=== PATIENT | female | born 1975 | race Caucasian/White ===

== ENCOUNTER 2021-01-22 02:40 | Inpatient (IN) ==
[2021-01-22] MEDS ORDERED: Naloxone 0.4 MG/ML INJ IVP PRN ×2 (05:51→15:31)
[2021-01-22] MEDS ORDERED: Ondansetron 4 MG/2 ML VIAL IVP PRN ×3 (05:51→15:31)
[2021-01-22] MEDS ORDERED: 0.9 % Sodium Chloride 1,000 ML IVC ONE (05:56)
[2021-01-22] MEDS ORDERED: Acetaminophen 325 MG TABLET PO PRN (06:38)
[2021-01-22] MEDS ORDERED: Ketorolac 15 MG/ML VIAL IVP PRN ×2 (06:38→15:31)
[2021-01-22 07:23] LABS: INR 1.3; Prothrombin Time 14.7 Seconds (9.4-12.1)
[2021-01-22 07:25] LABS: Activated Partial Thrombo Time 27.8 Seconds (26.0-36.0)
[2021-01-22 07:37] LABS: Hematocrit 33.4 % (35.3-44.9); Hemoglobin 11.5 g/dL (11.5-15.4); Mean Corpuscular HGB Conc 34.4 g/dL (31.6-35.5); Mean Corpuscular Hemoglobin 31.3 pg (28.0-33.3); Nucleated Red Blood Cells 0.7 /100 WBC (0); Platelet Count 145 K/mcL (140-400); Red Blood Count 3.67 M/mcL (3.82-4.97); Red Cell Distribution Width 12.5 % (11.5-14.5); White Blood Count 11.6 K/mcL (4.3-11.1)
[2021-01-22 07:54] LABS: Alanine Aminotransferase 29 Units/L (7-52); Albumin 3.7 g/dL (3.5-5.7); Albumin/Globulin Ratio 1.6 (1.1-2.2); Alkaline Phosphatase 48 Units/L (34-104); Aspartate Amino Transferase 19 Units/L (13-39); BUN/Creatinine Ratio 16 (6-26); Bilirubin,Total 0.7 mg/dL (0.3-1.0); Blood Urea Nitrogen 18 mg/dL (6-20); Calcium 8.2 mg/dL (8.6-10.3); Carbon Dioxide 18 mEq/L (23-29); Chloride 113 mEq/L (98-107); Globulin 2.3 g/dL (2.4-3.5); Glucose 116 mg/dL (70-105); Magnesium 1.3 mg/dL (1.6-2.6); Osmolality,Calculated 291 (280-300); Phosphorous 1.3 mg/dL (2.7-4.5); Potassium 2.9 mEq/L (3.5-5.1); Sodium 139 mEq/L (136-145); eGFR For African Americans > 60 (> 60); eGFR For Non-African Americans 52 (> 60)
[2021-01-22 08:44] LABS: Lymphocytes # 1.2 K/mcL (0.6-4.6); Monocytes # 0.9 K/mcL (0.0-1.3); Neutrophils # 9.5 K/mcL (1.6-8.9)
[2021-01-22 08:45] LABS: Platelet Estimate Normal (Normal)
[2021-01-22] MEDS ORDERED: Potassium Chloride 40 MEQ, Lidocaine 1% 2 ML in 0.9 % Sodium Chloride 500 ML IVPB ONE (08:45)
[2021-01-22 08:46] LABS: Reactive Lymphocytes Present (Not Present); Toxic Granulation Present (Not Present)
[2021-01-22] MEDS ORDERED: *HR* HYDROmorphone (PF) 1 MG/ML SYRINGE IVP PRN (08:48)
[2021-01-22] MEDS ORDERED: *HR* Meperidine 25 MG/ML SYRINGE IVP PRN (08:48)
[2021-01-22] MEDS ORDERED: *HR* OxyCODONE Immed Rel 5 MG TABLET PO PRN (08:48)
[2021-01-22] MEDS ORDERED: cefTRIAXone 1,000 MG in Water for inj. (sterile) 10 ML IVP SCH (09:00)
[2021-01-22] MEDS ORDERED: *HR* Midazolam HCl 2 MG/2 ML VIAL ONE ×2 (09:35→10:32)
[2021-01-22] MEDS ORDERED: *HR* Propofol 200 MG/20 ML VIAL IVP ONE ×2 (09:35→10:04)
[2021-01-22] MEDS ORDERED: *HR* FentaNYL (PF) 100 MCG/2 ML VIAL ONE ×2 (09:35→10:04)
[2021-01-22] MEDS ORDERED: Lidocaine -MPF 2% 2 ML VIAL ONE ×2 (09:35→10:04)
[2021-01-22] MEDS ORDERED: Isovue-300 50ML VIAL ONE (09:58)
[2021-01-22] MEDS ORDERED: Acetaminophen IV 1,000 MG/100 ML BAG IVPB ONE (10:05)
[2021-01-22] MEDS ORDERED: Dexamethasone 4 MG/ML VIAL ONE (10:17)
[2021-01-22] MEDS ORDERED: Ondansetron 4 MG/2 ML VIAL ONE (10:17)
[2021-01-22] MEDS ORDERED: *HR* PHENYLEPHRINE 1,000 MCG/10 ML SYRINGE IVP ONE (10:26)
[2021-01-22] MEDS ORDERED: Ketorolac 30 MG/ML VIAL ONE (10:33)
[2021-01-22] MEDS ORDERED: Ringers Solution, Lactated 1,000 ML ONE ×2 (10:47→11:20)
[2021-01-22] MEDS ORDERED: Potassium Phosphate 44 MEQ in 0.9 % Sodium Chloride 250 ML IVPB ONE (12:30)
[2021-01-22] MEDS ORDERED: 0.9 % Sodium Chloride 500 ML IVC ONE (13:55)
[2021-01-22] MEDS ORDERED: 0.9 % Sodium Chloride 1,000 ML IVC SCH (14:00)
[2021-01-22] MEDS: 0.9 % Sodium Chloride 1,000 ML IVC SCH (14:34)
[2021-01-22 15:02] LABS: Bilirubin,Urine Negative (Negative); Blood,Urine Large (Negative); Clarity,Urine Turbid (Clear); Color,Urine Yellow (Yellow); Glucose,Urine (UA) Normal (Normal); Ketones,Urine Negative (Negative); Leukocyte Esterase,Urine Large (Negative); Nitrite,Urine Negative (Negative); Protein,Urine 100 mg/dL (Neg-Trace); RBC,Urine TNTC per hpf (0-3); Specific Gravity,Urine 1.023 (1.010-1.025); Squamous Epithelial Cell,Urine Few per hpf (None-Few); Urobilinogen,Urine Normal (Normal); WBC,Urine TNTC per hpf (0-3)
[2021-01-22] MEDS ORDERED: *HR* Belladonna Alkaloids/Opium 30 MG RECTAL SUPPOSITORY RC PRN (15:31)
[2021-01-23] MEDS: Acetaminophen 325 MG TABLET PO PRN ×3 (02:57→16:37)
[2021-01-23] MEDS: 0.9 % Sodium Chloride 1,000 ML IVC SCH (02:58)
[2021-01-23 04:56] LABS: Mean Corpuscular HGB Conc 34.1 g/dL (31.6-35.5); Red Cell Distribution Width 13.3 % (11.5-14.5)
[2021-01-23 04:58] LABS: Hematocrit 27.3 % (35.3-44.9); Hemoglobin 9.3 g/dL (11.5-15.4); Immature Platelets 1.6 % (1.1-6.1); Mean Corpuscular Hemoglobin 31.5 pg (28.0-33.3); Mean Corpuscular Volume 92.5 fL (83.0-100.0); Monocytes # 0.7 K/mcL (0.0-1.3); Nucleated Red Blood Cells 0.1 /100 WBC (0); Platelet Count 103 K/mcL (140-400); Red Blood Count 2.95 M/mcL (3.82-4.97); White Blood Count 17.7 K/mcL (4.3-11.1)
[2021-01-23 05:17] LABS: BUN/Creatinine Ratio 24 (6-26); Blood Urea Nitrogen 20 mg/dL (6-20); Calcium 6.4 mg/dL (8.6-10.3); Carbon Dioxide 17 mEq/L (23-29); Chloride 118 mEq/L (98-107); Glucose 96 mg/dL (70-105); Magnesium 1.1 mg/dL (1.6-2.6); Osmolality,Calculated 294 (280-300); Phosphorous 1.7 mg/dL (2.7-4.5); Potassium 3.4 mEq/L (3.5-5.1); Sodium 141 mEq/L (136-145); eGFR For African Americans > 60 (> 60); eGFR For Non-African Americans > 60 (> 60)
[2021-01-23 05:24] LABS: Lymphocytes # 1.8 K/mcL (0.6-4.6); Neutrophils # 15.2 K/mcL (1.6-8.9); Platelet Estimate Decreased (Normal); Reactive Lymphocytes Present (Not Present)
[2021-01-23 08:40] LABS: VBG Ionized Calcium 1.12 mmol/L (1.15-1.35)
[2021-01-23] MEDS: Ringers Solution, Lactated 1,000 ML IVC SCH ×2 (09:32→22:51)
[2021-01-23] MEDS: cefTRIAXone 1,000 MG in Water for inj. (sterile) 10 ML IVP SCH (09:33)
[2021-01-23] MEDS ORDERED: Azithromycin 500 MG in 0.9 % Sodium Chloride 250 ML IVPB ONE (16:50)
[2021-01-24 01:02] LABS: Hematocrit 31.2 % (35.3-44.9); Hemoglobin 10.5 g/dL (11.5-15.4); Mean Corpuscular HGB Conc 33.7 g/dL (31.6-35.5); Mean Corpuscular Hemoglobin 30.6 pg (28.0-33.3); Mean Platelet Volume 10.3 fL (9.4-12.4); Nucleated Red Blood Cells 0.2 /100 WBC (0); Platelet Count 120 K/mcL (140-400); Red Blood Count 3.43 M/mcL (3.82-4.97); Red Cell Distribution Width 13.4 % (11.5-14.5); White Blood Count 15.3 K/mcL (4.3-11.1)
[2021-01-24 01:16] LABS: Anisocytosis 1+ (Not Present); Lymphocytes # 1.2 K/mcL (0.6-4.6); Monocytes # 0.9 K/mcL (0.0-1.3); Neutrophils # 13.2 K/mcL (1.6-8.9)
[2021-01-24 01:17] LABS: Platelet Estimate Slight Decrease (Normal)
[2021-01-24 01:21] LABS: BUN/Creatinine Ratio 15 (6-26); Blood Urea Nitrogen 12 mg/dL (6-20); Calcium 8.1 mg/dL (8.6-10.3); Chloride 115 mEq/L (98-107); Glucose 95 mg/dL (70-105); Magnesium 2.2 mg/dL (1.6-2.6); Osmolality,Calculated 288 (280-300); Phosphorous 1.2 mg/dL (2.7-4.5); Potassium 3.7 mEq/L (3.5-5.1); Sodium 139 mEq/L (136-145); eGFR For African Americans > 60 (> 60); eGFR For Non-African Americans > 60 (> 60)
[2021-01-24] MEDS: Acetaminophen 325 MG TABLET PO PRN ×2 (01:29→20:09)
[2021-01-24 02:09] LABS: Carbon Dioxide 19 mEq/L (23-29)
[2021-01-24] MEDS: cefTRIAXone 1,000 MG in Water for inj. (sterile) 10 ML IVP SCH (09:00)
[2021-01-24] MEDS: Ringers Solution, Lactated 1,000 ML IVC SCH ×3 (09:02→22:03)
[2021-01-24] MEDS ORDERED: Potassium Phosphate 44 MEQ in 0.9 % Sodium Chloride 250 ML IVPB ONE (09:43)
[2021-01-24] MEDS ORDERED: Acetaminophen/Butalbital/CaffeineTABLET PO PRN (12:04)
[2021-01-24 12:32] LABS: Adenovirus Not Detected (Not Detect); Bordetella Pertussis Not Detected (Not Detect); Chlamydophila pneumoniae Not Detected (Not Detect); Coronavirus 229E Not Detected (Not Detect); Coronavirus HKU1 Not Detected (Not Detect); Coronavirus NL63 Not Detected (Not Detect); Coronavirus OC43 Not Detected (Not Detect); Human Metapneumovirus Not Detected (Not Detect); Human Rhinovirus/Enterovirus Not Detected (Not Detect); Influenza A Subtype 2009 H1 Not Detected (Not Detect); Influenza B Not Detected (Not Detect); Mycoplasma pneumoniae Not Detected (Not Detect); Parainfluenza Virus 1 Not Detected (Not Detect); Parainfluenza Virus 2 Not Detected (Not Detect); Parainfluenza Virus 3 Not Detected (Not Detect); Parainfluenza Virus 4 Not Detected (Not Detect); Respiratory Syncytial Virus Not Detected (Not Detect); SARS-CoV-2 Not Detected (Not Detect)
[2021-01-24] MEDS: valACYclovir 500 MG TABLET PO SCH (13:37)
[2021-01-24] MEDS: Topiramate 25 MG TABLET PO SCH ×2 (13:37→20:08)
[2021-01-24] MEDS ORDERED: Sucralfate 1 GM TABLET PO SCH (21:00)
[2021-01-24] MEDS ORDERED: Gabapentin 300 MG CAPSULE PO SCH (21:00)
[2021-01-25 06:35] LABS: Basophils % 0.2 %; Eosinophils # 0.3 K/mcL (0.0-0.6); Eosinophils % 2.9 %; Hematocrit 33.8 % (35.3-44.9); Immature Granulocytes % 5.9 % (0-4); Lymphocytes # 2.2 K/mcL (0.6-4.6); Lymphocytes % 21.9 %; Mean Corpuscular HGB Conc 32.5 g/dL (31.6-35.5); Mean Corpuscular Hemoglobin 30.8 pg (28.0-33.3); Mean Corpuscular Volume 94.7 fL (83.0-100.0); Mean Platelet Volume 9.9 fL (9.4-12.4); Monocytes # 0.6 K/mcL (0.0-1.3); Monocytes % 6.1 %; Neutrophils # 6.2 K/mcL (1.6-8.9); Nucleated Red Blood Cells 0.3 /100 WBC (0); Platelet Count 172 K/mcL (140-400); Red Blood Count 3.57 M/mcL (3.82-4.97); Red Cell Distribution Width 13.7 % (11.5-14.5); White Blood Count 9.8 K/mcL (4.3-11.1)
[2021-01-25 06:55] LABS: Platelet Estimate Normal (Normal); Smudge Cells Present (Not Present)
[2021-01-25 06:57] LABS: BUN/Creatinine Ratio 8 (6-26); Blood Urea Nitrogen 6 mg/dL (6-20); Calcium 8.6 mg/dL (8.6-10.3); Carbon Dioxide 19 mEq/L (23-29); Chloride 114 mEq/L (98-107); Glucose 93 mg/dL (70-105); Magnesium 1.7 mg/dL (1.6-2.6); Osmolality,Calculated 285 (280-300); Phosphorous 2.8 mg/dL (2.7-4.5); Potassium 3.9 mEq/L (3.5-5.1); Sodium 139 mEq/L (136-145); eGFR For African Americans > 60 (> 60); eGFR For Non-African Americans > 60 (> 60)
[2021-01-25 07:16] VITALS: BP 118/69
[2021-01-25] MEDS: cefTRIAXone 1,000 MG in Water for inj. (sterile) 10 ML IVP SCH (08:52)
[2021-01-25] MEDS: valACYclovir 500 MG TABLET PO SCH (08:53)
[2021-01-25] MEDS: Topiramate 25 MG TABLET PO SCH (08:53)
[2021-01-25] MEDS: Ringers Solution, Lactated 1,000 ML IVC SCH (08:54)
[2021-01-25] MEDS ORDERED: Venlafaxine XR (24 HR) 150 MG CAP.ER.24H PO SCH (09:00)
[2021-01-25] MEDS ORDERED: Cholecalciferol (D-3) 1,000 UNIT (25MCG) TABLET PO SCH (09:00)
[2021-01-27 13:44] LABS: Calculi Mass 20 mg
== END 2021-01-25 12:10 | disposition home or self-care (01) | DRG 853 ==
LOC: 3BNU → SUATTDRO 04:55
PROVIDERS: ADMIT Internal Medicine; ATTEND Internal Medicine